=== PATIENT | female | born 1960 | race African-American/Black ===

== ENCOUNTER 2020-01-31 09:46 | Outpatient (CLI) | payer BC, SELFPAY ==
[2020-01-31 10:10] LABS: Hemoglobin A1C 8.2 % (<5.7)
== END 2020-01-31 09:47 | disposition home or self-care (01) ==
LOC: ANHLAB 09:48
PROVIDERS: PCP Internal Medicine; Visit Provider Nurse Practitioner
DX: E11.9 Type 2 diabetes mellitus without complications (principal)
CPT/HCPCS: 36415; 83036

== ENCOUNTER 2020-04-25 08:53 | Outpatient (CLI) | payer BC, SELFPAY ==
[2020-04-25 09:27] LABS: Basophils Percent Auto 0.5 % (0.2-1.2); Eosinophils Absolute Auto 0.1 K/mm3 (0-0.3); Eosinophils Percent Auto 1.9 % (0-4.4); Hematocrit 35.2 % (37.0-47.0); Hemoglobin 11.8 g/dL (12.0-15.0); Immature Granulocyte Absolute 0.02 K/mm3 (0.00-0.031); Immature Granulocyte Percent A 0.5 % (0-0.5); Lymphocytes Absolute Auto 1.36 K/mm3 (0.9-3.2); Lymphocytes Percent Auto 32.2 % (18.3-44.2); Mean Corpuscular HGB Conc 33.5 g/dl (32-36); Mean Corpuscular Hemoglobin 28.4 pg (26-34); Mean Corpuscular Volume 84.6 fl (80-100); Mean Platelet Volume 10.3 fl (7.4-10.4); Monocytes Absolute Auto 0.3 K/mm3 (0.1-0.6); Monocytes Percent Auto 6.9 % (2.6-8.5); Neutrophils Absolute Auto 2.5 K/mm3 (1.3-6.7); Platelet Count Result 246 k/mm3 (150-375); Red Blood Count 4.16 M/mm3 (4.2-5.4); Red Cell Distribution Width 13.6 % (11.5-14.5); White Blood Count 4.2 K/mm3 (4.5-10.0)
[2020-04-25 09:33] LABS: Alanine Aminotransferase 18 U/L (4-35); Albumin Level 4.1 g/dL (3.5-5.1); Alkaline Phosphatase 93 U/L (38-126); Anion Gap 8 mmol/L (8-16); Aspartate Amino Transferase 23 U/L (14-36); Bilirubin,Total 0.2 mg/dL (0.2-1.3); Blood Urea Nitrogen 9 mg/dL (7-17); Calcium 9.2 mg/dL (8.4-10.2); Carbon Dioxide 28 mmol/L (22-30); Chloride 103 mmol/L (98-107); Cholesterol 166 mg/dL (0-200); Estimated Glomerular Filt Rate > 60; Glucose 134 mg/dL (65-105); HDL Direct 45 mg/dL; Potassium 4.2 mmol/L (3.4-5.0); Sodium 139 mmol/L (137-145); Triglycerides 125 mg/dL (<150)
[2020-04-25 09:41] LABS: Hemoglobin A1C 7.9 % (<5.7)
[2020-04-25 09:44] LABS: LDL Cholesterol Direct 83 mg/dL
== END 2020-04-25 08:54 | disposition home or self-care (01) ==
PROVIDERS: PCP Internal Medicine; Visit Provider Nurse Practitioner
DX: E11.9 Type 2 diabetes mellitus without complications (principal)
CPT/HCPCS: 36415; 80053; 80061; 83036; 85025

== ENCOUNTER 2020-08-08 07:42 | Outpatient (CLI) | payer BC, SELFPAY ==
[2020-08-08 08:23] LABS: Basophils Percent Auto 0.5 % (0.2-1.2); Eosinophils Absolute Auto 0.1 K/mm3 (0-0.3); Eosinophils Percent Auto 1.7 % (0-4.4); Hematocrit 35.2 % (37.0-47.0); Hemoglobin 11.9 g/dL (12.0-15.0); Immature Granulocyte Absolute 0.01 K/mm3 (0.00-0.031); Immature Granulocyte Percent A 0.2 % (0-0.5); Lymphocytes Absolute Auto 1.37 K/mm3 (0.9-3.2); Lymphocytes Percent Auto 32.5 % (18.3-44.2); Mean Corpuscular HGB Conc 33.8 g/dl (32-36); Mean Corpuscular Hemoglobin 29.4 pg (26-34); Mean Corpuscular Volume 86.9 fl (80-100); Mean Platelet Volume 10.5 fl (7.4-10.4); Monocytes Absolute Auto 0.3 K/mm3 (0.1-0.6); Monocytes Percent Auto 7.3 % (2.6-8.5); Neutrophils Absolute Auto 2.4 K/mm3 (1.3-6.7); Neutrophils Percent Auto 57.8 % (45.5-73.1); Platelet Count Result 232 k/mm3 (150-375); Red Blood Count 4.05 M/mm3 (4.2-5.4); Red Cell Distribution Width 13.7 % (11.5-14.5); White Blood Count 4.2 K/mm3 (4.5-10.0)
[2020-08-08 08:31] LABS: Immature Reticulocyte Fraction 14.8 % (3.0-15.9); Reticulocyte Hemoglobin Conten 33.3 pg (28.2-35.7); Reticulocyte Percent 1.74 % (0.7-4.3); Reticulocytes Absolute 0.07 B/L (32.2-175.7)
[2020-08-08 08:37] LABS: Alanine Aminotransferase 24 U/L (4-35); Alkaline Phosphatase 85 U/L (38-126); Anion Gap 2 mmol/L (8-16); Aspartate Amino Transferase 26 U/L (14-36); Bilirubin,Total 0.2 mg/dL (0.2-1.3); Blood Urea Nitrogen 12 mg/dL (7-17); Calcium 9.1 mg/dL (8.4-10.2); Carbon Dioxide 29 mmol/L (22-30); Chloride 103 mmol/L (98-107); Cholesterol 155 mg/dL (0-200); Estimated Glomerular Filt Rate > 60; Glucose 206 mg/dL (65-105); HDL Direct 45 mg/dL; Potassium 4.2 mmol/L (3.4-5.0); Sodium 134 mmol/L (137-145); Triglycerides 140 mg/dL (<150)
[2020-08-08 08:48] LABS: LDL Cholesterol Direct 68 mg/dL
[2020-08-08 09:05] LABS: Iron 66 ug/dL (37-170)
[2020-08-08 09:08] LABS: Creatinine Urine 160.6 mg/dL
[2020-08-08 09:14] LABS: Percent Iron Saturation 18 % (20-50)
[2020-08-08 09:33] LABS: MALB Creatinine Ratio < 3.7 mg/g (0-30); Microalbumin Urine Random < 6.0 mg/L (0-16.7)
[2020-08-08 09:48] LABS: Hemoglobin A1C 8.1 % (<5.7)
== END 2020-08-08 07:43 | disposition home or self-care (01) ==
PROVIDERS: PCP Internal Medicine; Visit Provider Clinical Nurse Specialist
DX: E11.9 Type 2 diabetes mellitus without complications (principal); Z79.4 Long term (current) use of insulin; E78.00 Pure hypercholesterolemia, unspecified; D62 Acute posthemorrhagic anemia; K92.0 Hematemesis; K92.1 Melena
CPT/HCPCS: 36415; 80053; 80061; 82043; 82728; 83036; 83540; 83550; 85025; 85046

== ENCOUNTER 2020-08-13 14:28 | Outpatient (CLI) | payer BC, SELFPAY ==
--- NOTE | ~2020-08-13 | XR_ITS ---
XR wrist LT min 3V DATE: 08/13/2020 14:44 INDICATION: Left wrist pain, swelling. No known injury TECHNIQUE: 4 views COMPARISON: None FINDINGS: There is some circumscribed chronic bony density at the distal medial aspect of the ulna. No recent fracture or dislocation. No periosteal reaction or bone destruction. There is osteoarthritic change at the first carpometacarpal joint. 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 BIT ARTIST
== END 2020-08-13 14:29 | disposition home or self-care (01) ==
LOC: ANHIMG 14:34
PROVIDERS: PCP Internal Medicine; Visit Provider Clinical Nurse Specialist
DX: M25.532 Pain in left wrist (principal); M19.032 Primary osteoarthritis, left wrist
CPT/HCPCS: 73110

== ENCOUNTER 2020-08-14 15:48 | Outpatient (CLI) | payer BC, SELFPAY ==
--- NOTE | ~2020-08-14 | MM_ITS ---
EXAMINATION: MM screening getachew BI w jeet HISTORY: Screening mammogram, family history of breast cancer in her mother and sister. TECHNIQUE: Craniocaudal and mediolateral oblique 3-D tomosynthesis images were obtained and synthetic 2-D images were generated. CAD analysis was submitted and interpreted. COMPARISON: 07/25/2019, 05/16/2019, 08/21/2017 BREAST PARENCHYMAL COMPOSITION: The breasts are almost entirely fatty. FINDINGS: There is no evidence of suspicious mass, calcification, or architectural distortion to sugg est malignancy in either breast. There has been no suspicious interval change. IMPRESSION: 1. No mammographic evidence of malignancy. 2. Recommend routine screening mammography in one year. BI-RADS Category 1: Negative Reviewed, dictated and finalized at location A. . 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
== END 2020-08-14 15:49 | disposition home or self-care (01) ==
LOC: ANHIMG 15:50
PROVIDERS: PCP Internal Medicine; Visit Provider Internal Medicine
DX: Z12.31 Encounter for screening mammogram for malignant neoplasm of breast (principal)
CPT/HCPCS: 77063; 77067

== ENCOUNTER 2020-09-29 14:38 | Outpatient (CLI) | payer BC, SELFPAY ==
--- NOTE | ~2020-09-29 | MR_ITS ---
EXAMINATION: MR wrist LT wo/w con DATE: 09/29/2020 15:55 INDICATION: Left wrist ganglion presenting with pain TECHNIQUE: Magnetic resonance imaging (MRI) of the left wrist was performed without and with 20 mL Mu ltihance intravenous contrast. Sequences performed include axial T1-weighted FSE, axial, sagittal and coronal T1-weighted FSE, T2-weighted FS FSE and postcontrast T1-weighted FS FSE. COMPARISON: Left wrist radiographs dated 08/13/2020 FINDINGS: Intrinsic ligaments: The scapholunate and lunotriquetral ligaments are normal. Triangular fibrocartilage complex (TFCC): The distal aspect of the ulnar side of the triangular fibrocartilage complex appears to extend to a s mall ossicle overlying the distal tip of the ulnar styloid process which could represent either a chr onic nonunited avulsion fracture fragment or heterotopic ossification of the avulsed ulnar styloid at tachment of the trigone fibrocartilage complex. There is mild cystic change in the underlying ulnar s tyloid process. The triangular foreign cartilage complex appears otherwise normal with intact radial and foveal attachments and intact dorsal and radioulnar ligaments. The extensor carpi ulnaris tendon sheath is normal. Extensor wrist: Small amount of fluid consistent with mild tenosynovitis in the fourth dorsal compartment of the wris t with small amount of fluid signal surrounding the tendons. There is thickening of the extensor tend ons and the fourth dorsal compartment. One of the tendons which appears to extend towards the third d igit appears expanded by a 7 x 3 x 2 mm intrasubstance ganglion cyst suggesting a partial-thickness i ntrasubstance tear. This is located dorsal to the capitate. Remaining extensor tendons of the wrist a re normal. Flexor wrist: The flexor tendons of the wrist are normal. No abnormality in the carpal tunnel with normal median n erve. Guyon's canal: Guyon's canal including the ulnar nerve and artery are normal. Bones/other: Bone alignment is normal. No fracture or pathologic marrow replacing process. There is mild to modera te osteoarthritis at the first carpal metacarpal joint with nonuniform joint space narrowing, small m arginal osteophytes, small palmar side at this osteochondral body and mild subarticular edema at the base of the first metatarsal. Marrow signal is otherwise normal. No acute fracture or pathologic meeta ow replacing process. Additional mild osteoarthritis at the distal radioulnar, midcarpal and triscap he joints. IMPRESSION: 1. Tenosynovitis in the fourth dorsal compartment with tendinopathy of the extensor tendons most maira re involving the extensor tendons to the third digit one of which is likely partially torn with small intrasubstance ganglion cyst. 2. Portion of the targeted fibrocartilage complex extends to a small ossicle near the tip of the ulna r styloid process consistent with either a chronic nonunited avulsion fracture or heterotopic ossific ation related to chronic soft tissue avulsion injury. 3. Mild to moderate osteoarthritis at the first carpometacarpal joint. Reviewed, dictated and finalized at location A. IMPRESSION: 1. Tenosynovitis in the fourth dorsal compartment with tendinopathy of the exte nsor tendons most severe involving the extensor tendons to the third digit one of which is likely partially torn with small intrasubstance ganglion cyst. 2. Portion of the targeted fibrocartilage complex extends to a small ossicle ne ar the tip of the ulnar styloid process consistent with either a chronic nonuni echo avulsion fracture or heterotopic ossification related to chronic soft tissu e avulsion injury. 3. Mild to moderate osteoarthritis at the first carpometacarpal joint.
[2020-09-29 15:17] LABS: Estimated Glomerular Filt Rate > 60
== END 2020-09-29 14:39 | disposition home or self-care (01) ==
PROVIDERS: PCP Internal Medicine; Visit Provider Orthopaedic Surgery
DX: M67.432 Ganglion, left wrist (principal); M18.12 Unilateral primary osteoarthritis of first carpometacarpal joint, left hand
CPT/HCPCS: 73223; A9577

== ENCOUNTER 2020-11-07 07:36 | Outpatient (CLI) | payer BC, SELFPAY | END 2020-11-07 07:37 | disposition home or self-care (01) | LOC: ANHLAB 07:38 | PROVIDERS: PCP Internal Medicine; Visit Provider Clinical Nurse Specialist | DX: E11.9 Type 2 diabetes mellitus without complications (principal); Z79.4 Long term (current) use of insulin | CPT/HCPCS: 36415; 83036 ==

== ENCOUNTER 2021-02-17 13:19 | Outpatient (CLI) | payer BC, SELFPAY ==
[2021-02-17 15:44] LABS: Hematocrit 39.2 % (37.0-47.0); Hemoglobin 12.9 g/dL (12.0-15.0); Mean Corpuscular HGB Conc 32.9 g/dl (32-36); Mean Corpuscular Hemoglobin 28.8 pg (26-34); Mean Corpuscular Volume 87.5 fl (80-100); Mean Platelet Volume 10.9 fl (7.4-10.4); Platelet Count Result 295 k/mm3 (150-375); Red Blood Count 4.48 M/mm3 (4.2-5.4); Red Cell Distribution Width 13.9 % (11.5-14.5); White Blood Count 4.9 K/mm3 (4.5-10.0)
[2021-02-17 17:24] LABS: Iron 77 ug/dL (37-170)
[2021-02-17 17:33] LABS: Percent Iron Saturation 21 % (20-50)
== END 2021-02-17 13:20 | disposition home or self-care (01) ==
PROVIDERS: PCP Internal Medicine; Visit Provider Nurse Practitioner Family
DX: D62 Acute posthemorrhagic anemia (principal)
CPT/HCPCS: 36415; 82728; 83540; 83550; 85027

== ENCOUNTER 2021-08-31 14:47 | Outpatient (CLI) | payer BC, SELFPAY ==
--- NOTE | ~2021-08-31 | MM_ITS ---
EXAMINATION: MM screening getachew BI w jeet HISTORY: Screening mammogram TECHNIQUE: Craniocaudal and mediolateral oblique 3-D tomosynthesis images were obtained and synthetic 2-D images were generated. CAD analysis was submitted and interpreted. COMPARISON: No prior mammogram is available for comparison at this institution. BREAST PARENCHYMAL COMPOSITION: The breasts are almost entirely fatty. FINDINGS: Scattered benign calcifications are noted. There is no evidence of suspicious mass, calcifi cation, or architectural distortion to suggest malignancy in either breast. There has been no suspici ous interval change. IMPRESSION: 1. No mammographic evidence of malignancy. 2. Recommend routine screening mammography in one year. BI-RADS Category 2: Benign finding(s). Reviewed, dictated and finalized at location A. UCT DELIVERY SPECIALIST
== END 2021-08-31 14:48 | disposition home or self-care (01) ==
LOC: ANHIMG 14:50
PROVIDERS: PCP Internal Medicine; Visit Provider Internal Medicine
DX: Z12.31 Encounter for screening mammogram for malignant neoplasm of breast (principal)
CPT/HCPCS: 77063; 77067

== ENCOUNTER 2022-01-14 09:45 | Outpatient (CLI) | payer BC, SELFPAY ==
[2022-01-14 11:19] LABS: Alanine Aminotransferase 18 U/L (6-35); Alkaline Phosphatase 86 U/L (38-126); Anion Gap 5 mmol/L (8-16); Aspartate Amino Transferase 23 U/L (14-36); Bilirubin,Total < 0.1 mg/dL (0.2-1.3); Blood Urea Nitrogen 4 mg/dL (7-17); Calcium 8.2 mg/dL (8.4-10.2); Carbon Dioxide 28 mmol/L (22-30); Chloride 104 mmol/L (98-107); Cholesterol 160 mg/dL (0-200); Estimated Glomerular Filt Rate > 60; Glucose 155 mg/dL (65-110); HDL Direct 46 mg/dL; Potassium 3.7 mmol/L (3.4-5.0); Sodium 137 mmol/L (137-145); Triglycerides 131 mg/dL (<150)
[2022-01-14 11:37] LABS: LDL Cholesterol Direct 71 mg/dL
[2022-01-14 14:06] LABS: Microalbumin Urine Random 34.6 mg/L (0-16.7)
[2022-01-14 14:09] LABS: Creatinine Urine 279.8 mg/dL; MALB Creatinine Ratio 12.4 mg/g (0-30)
[2022-01-14 15:09] LABS: Free T4 Free Thyroxine 0.93 ng/mL (0.78-2.19); Vitamin D 25 Hydroxy 35.9 ng/mL
== END 2022-01-14 09:46 | disposition home or self-care (01) ==
LOC: ANHLAB 09:47
PROVIDERS: PCP Internal Medicine; Visit Provider Nurse Practitioner Family
DX: R79.89 Other specified abnormal findings of blood chemistry (principal); I10 Essential (primary) hypertension; E78.00 Pure hypercholesterolemia, unspecified; E11.9 Type 2 diabetes mellitus without complications
CPT/HCPCS: 36415; 80053; 80061; 82043; 82306; 82607; 84439; 84443

== ENCOUNTER 2022-02-14 07:09 | Outpatient (CLI) | payer BC, SELFPAY ==
[2022-02-14 09:02] LABS: Anion Gap 12 mmol/L (8-16); Blood Urea Nitrogen 7 mg/dL (7-17); Calcium 8.7 mg/dL (8.4-10.2); Carbon Dioxide 24 mmol/L (22-30); Chloride 102 mmol/L (98-107); Estimated Glomerular Filt Rate > 60; Glucose 149 mg/dL (65-110); Potassium 4.9 mmol/L (3.4-5.0); Sodium 138 mmol/L (137-145)
[2022-02-22 15:32] LABS: Parathyroid Hormone Related Pr 12 pg/mL (11-20)
== END 2022-02-14 07:10 | disposition home or self-care (01) ==
LOC: ANHLAB 07:10
PROVIDERS: PCP Internal Medicine; Visit Provider Nurse Practitioner Family
DX: E83.51 Hypocalcemia (principal); R79.89 Other specified abnormal findings of blood chemistry
CPT/HCPCS: 36415; 80048; 83519

== ENCOUNTER 2022-10-19 09:07 | Outpatient (CLI) | payer BC, SELFPAY ==
[2022-10-19 09:31] LABS: Basophils Percent Auto 0.5 % (0.2-1.2); Eosinophils Absolute Auto 0.1 K/mm3 (0-0.3); Eosinophils Percent Auto 1.7 % (0-4.4); Hematocrit 35.4 % (37.0-47.0); Hemoglobin 11.8 g/dL (12.0-15.0); Immature Granulocyte Absolute 0.01 K/mm3 (0.00-0.031); Immature Granulocyte Percent A 0.2 % (0-0.5); Lymphocytes Absolute Auto 1.44 K/mm3 (0.9-3.2); Lymphocytes Percent Auto 34.1 % (18.3-44.2); Mean Corpuscular HGB Conc 33.3 g/dl (32-36); Mean Corpuscular Hemoglobin 29.9 pg (26-34); Mean Corpuscular Volume 89.6 fl (80-100); Mean Platelet Volume 9.7 fl (7.4-10.4); Monocytes Absolute Auto 0.3 K/mm3 (0.1-0.6); Monocytes Percent Auto 7.1 % (2.6-8.5); Neutrophils Absolute Auto 2.4 K/mm3 (1.3-6.7); Neutrophils Percent Auto 56.4 % (45.5-73.1); Platelet Count Result 241 k/mm3 (150-375); Red Blood Count 3.95 M/mm3 (4.2-5.4); White Blood Count 4.2 K/mm3 (4.5-10.0)
[2022-10-19 09:42] LABS: Alanine Aminotransferase 22 U/L (6-35); Albumin Level 4.3 g/dL (3.5-5.1); Alkaline Phosphatase 89 U/L (38-126); Anion Gap 6 mmol/L (8-16); Aspartate Amino Transferase 24 U/L (14-36); Bilirubin,Total 0.5 mg/dL (0.2-1.3); Blood Urea Nitrogen 11 mg/dL (7-17); Calcium 8.8 mg/dL (8.4-10.2); Carbon Dioxide 25 mmol/L (22-30); Chloride 103 mmol/L (98-107); Cholesterol 162 mg/dL (0-200); Estimated Glomerular Filt Rate > 60; Glucose 129 mg/dL (65-110); HDL Direct 48 mg/dL; Potassium 3.8 mmol/L (3.4-5.0); Sodium 134 mmol/L (137-145); Triglycerides 119 mg/dL (<150)
[2022-10-19 09:52] LABS: Hemoglobin A1C 7.7 % (<5.7)
[2022-10-19 10:03] LABS: Vitamin D 25 Hydroxy 37.7 ng/mL
[2022-10-19 10:12] LABS: LDL Cholesterol Direct 73 mg/dL
== END 2022-10-19 09:08 | disposition home or self-care (01) ==
LOC: ANHLAB 09:09
PROVIDERS: PCP Internal Medicine; Visit Provider Nurse Practitioner
DX: R79.89 Other specified abnormal findings of blood chemistry (principal); E11.9 Type 2 diabetes mellitus without complications
CPT/HCPCS: 36415; 80053; 80061; 82306; 83036; 85025

== ENCOUNTER 2022-11-21 12:30 | Outpatient (CLI) | payer BC, SELFPAY ==
[2022-11-21 14:03] LABS: Free T4 Free Thyroxine 0.95 ng/mL (0.78-2.19)
== END 2022-11-21 12:31 | disposition home or self-care (01) ==
PROVIDERS: PCP Internal Medicine; Visit Provider Nurse Practitioner Family
DX: E11.9 Type 2 diabetes mellitus without complications (principal)
CPT/HCPCS: 36415; 84439; 84443

== ENCOUNTER 2022-12-16 13:02 | Outpatient (CLI) | payer BC, SELFPAY ==
--- NOTE | ~2022-12-16 | XR_ITS ---
Right Knee Technique: AP, lateral, and sunrise views were obtained. Clinical History: Pain Findings: No fracture or dislocation is seen. Osseous alignment is anatomic. Joint spaces are preserv ed without degenerative or erosive change. There is enthesopathic change at the Achilles tendon inser tion. There is probable heterotopic ossification related to remote MCL injury proximally.. No joint e ffusion is seen. Impression: No acute reality seen. Evidence of prior remote MCL injury. Enthesopathic change at the Achilles tendon insertion. Reviewed, dictated and finalized at location M. Impression: No acute reality seen. Evidence of prior remote MCL injury. Enthesopathic change at the Achilles tendon insertion.
[2022-12-16 13:32] LABS: Basophils Percent Auto 0.3 % (0.2-1.2); Eosinophils Absolute Auto 0.1 K/mm3 (0-0.3); Eosinophils Percent Auto 1.3 % (0-4.4); Hematocrit 35.8 % (37.0-47.0); Hemoglobin 11.9 g/dL (12.0-15.0); Immature Granulocyte Absolute 0.03 K/mm3 (0.00-0.031); Immature Granulocyte Percent A 0.3 % (0-0.5); Lymphocytes Absolute Auto 1.44 K/mm3 (0.9-3.2); Lymphocytes Percent Auto 15.2 % (18.3-44.2); Mean Corpuscular HGB Conc 33.2 g/dl (32-36); Mean Corpuscular Hemoglobin 29.6 pg (26-34); Mean Corpuscular Volume 89.1 fl (80-100); Mean Platelet Volume 10.7 fl (7.4-10.4); Monocytes Absolute Auto 0.4 K/mm3 (0.1-0.6); Monocytes Percent Auto 4.4 % (2.6-8.5); Neutrophils Absolute Auto 7.4 K/mm3 (1.3-6.7); Neutrophils Percent Auto 78.5 % (45.5-73.1); Platelet Count Result 265 k/mm3 (150-375); Red Blood Count 4.02 M/mm3 (4.2-5.4); Red Cell Distribution Width 13.9 % (11.5-14.5); White Blood Count 9.5 K/mm3 (4.5-10.0)
[2022-12-16 14:03] LABS: Iron 56 ug/dL (37-170)
[2022-12-16 14:13] LABS: Percent Iron Saturation 16 % (20-50)
[2022-12-16 14:51] LABS: Folic Acid 13.4 ng/mL (2.76->20)
== END 2022-12-16 13:03 | disposition home or self-care (01) ==
LOC: ANHIMG 13:02
PROVIDERS: Clinical Nurse Specialist; PCP Internal Medicine; Visit Provider Nurse Practitioner
DX: M25.561 Pain in right knee (principal); D64.9 Anemia, unspecified; R93.6 Abnormal findings on diagnostic imaging of limbs
CPT/HCPCS: 36415; 73564; 82607; 82728; 82746; 83540; 83550; 85025

== ENCOUNTER 2023-02-02 08:26 | Outpatient (CLI) | payer OTHER, SELFPAY ==
--- NOTE | ~2023-02-02 | MM_ITS ---
EXAMINATION: MM screening getachew BI w jeet HISTORY: Screening mammogram, family history of breast cancer in her mother. TECHNIQUE: Craniocaudal and mediolateral oblique 3-D tomosynthesis images were obtained and synthetic 2-D images were generated. CAD analysis was submitted and interpreted. COMPARISON: 08/31/2021, 08/14/2020, 07/25/2019 BREAST PARENCHYMAL COMPOSITION: The breasts are almost entirely fatty. FINDINGS: No suspicious mass, calcification, or architectural distortion are identified in either alonso ast to suggest malignancy. There has been no suspicious interval change. IMPRESSION: 1. No mammographic evidence of malignancy. 2. Recommend routine screening mammography in one year. BI-RADS Category 1: Negative Reviewed, dictated and finalized at location A.
--- NOTE | ~2023-02-02 | DEXA_ITS ---
Bone Density Report Name: JANEL DOMINGUEZ Age: 62 Sex: Female Ethnicity: White Date of : 1960 Indication: postmenopausal; screening for osteoporosis; Referring Provider: JACKY PINEDA Study: Bone densitometry was performed. Exam Date: February 02, 2023 Accession number: [id number] Bone Density: Region BMD T-score Z-score Classification AP Spine(L1-L4) 1.309 2.4 3.9 Normal Femoral Neck (Left) 0.989 1.3 2.6 Normal Total Hip (Left) 1.210 2.2 3.2 Normal Femoral Neck (Right) 1.029 1.6 3.0 Normal Total Hip (Right) 1.216 2.2 3.3 Normal Total Hip Mean 1.213 2.2 3.3 Normal World Health Organization criteria for BMD impression classify patients as: Normal (T-score at or above -1.0), Osteopenia (T-score between -1.0 and -2.5), or Osteoporosis (T-score at or below -2.5). 10-year Fracture Risk: FRAX not reported because: All T-scores for Spine Total, Hip Total, Femoral Neck at or above -1.0 Clinical Information Provided by Patient: Has used the following medications: Vitamin D Patient maximum height was 56 Menopause Age: 51 Drinks caffeinated beverages Onset of menses at age 13 Number of children 1 Impression: The patient has normal bone mass. Discussion: LOW RISK OF FRACTURE; BONE DENSITY IS WELL ABOVE THE MINIMUM DESIRABLE LEVEL AND ABOVE AVERAGE FOR AGE AND SEX AT ALL SKELETAL SITES TESTED. This person's bone density is above expected limits for age and sex. This is rarely clinically significant, but should be pursued if there are significant musculoskeletal complaints. The patient should follow a healthful lifestyle (good nutrition with adequate calcium and vitamin D, and appropriate weight-bearing exercise). Follow-Up: Consider repeating this study in 5 years or sooner if there is some new clinical indication. Reported by: [facility] on 02/02/2023 8:59:00 AM. Reviewed, dictated and finalized at location ANikolai POSADA
== END 2023-02-02 08:27 | disposition home or self-care (01) ==
PROVIDERS: PCP Internal Medicine; Visit Provider Clinical Nurse Specialist
DX: Z12.31 Encounter for screening mammogram for malignant neoplasm of breast (principal); Z78.0 Asymptomatic menopausal state
CPT/HCPCS: 77063; 77067; 77080

== ENCOUNTER 2023-02-13 16:32 | Outpatient (CLI) | payer OTHER, SELFPAY ==
--- NOTE | ~2023-02-13 | US_ITS ---
EXAMINATION: US thyroid DATE: 02/13/2023 18:23 INDICATION: Dysphasia. Family history of thyroid cancer. TECHNIQUE: Multiple ultrasound images of the thyroid were obtained. COMPARISON: None. FINDINGS: The right thyroid lobe measures 4.6 x 1.6 x 1.6 cm. The left thyroid lobe measures 4.8 x 1.6 x 1.7 c m. The isthmus measures 0.3 cm. There is slightly heterogeneous echotexture and echogenicity througho ut the thyroid gland. No discrete nodules identified. Normal vascular flow is present. IMPRESSION: Heterogeneous echogenicity of the thyroid gland, a nonspecific finding that can be seen with Hashimot o thyroiditis and Graves' disease. No nodules detected. Reviewed, dictated and finalized at location K. IMPRESSION: Heterogeneous echogenicity of the thyroid gland, a nonspecific finding that can be seen with [place] thyroiditis and Graves' disease. No nodules detected.
== END 2023-02-13 16:33 | disposition home or self-care (01) ==
PROVIDERS: PCP Internal Medicine; Visit Provider Nurse Practitioner Family
DX: R13.10 Dysphagia, unspecified (principal)
CPT/HCPCS: 76536

== ENCOUNTER 2024-03-16 07:19 | Outpatient (CLI) | payer OTHER, SELFPAY ==
[2024-03-16 08:05] LABS: Alanine Aminotransferase 21 U/L (6-35); Albumin Level 4.1 g/dL (3.5-5.1); Alkaline Phosphatase 76 U/L (38-126); Anion Gap 9 mmol/L (4-12); Aspartate Amino Transferase 28 U/L (14-36); Bilirubin,Total 0.3 mg/dL (0.2-1.3); Blood Urea Nitrogen 7 mg/dL (7-17); Carbon Dioxide 29 mmol/L (22-30); Chloride 100 mmol/L (98-107); Cholesterol 147 mg/dL (0-200); Estimated Glomerular Filt Rate > 60; Glucose 122 mg/dL (65-110); HDL Direct 52 mg/dL; Potassium 3.9 mmol/L (3.4-5.0); Sodium 138 mmol/L (137-145); Triglycerides 118 mg/dL (<150)
[2024-03-16 08:17] LABS: LDL Cholesterol Direct 59 mg/dL
[2024-03-16 09:11] LABS: Creatinine Urine 80.7 mg/dL
[2024-03-16 09:26] LABS: Free T4 Free Thyroxine 0.68 ng/mL (0.78-2.19); Vitamin D 25 Hydroxy 30.4 ng/mL
[2024-03-16 09:35] LABS: MALB Creatinine Ratio < 7.4 mg/g (0-30); Microalbumin Urine Random < 6.0 mg/L (0-16.7)
== END 2024-03-16 07:20 | disposition home or self-care (01) ==
LOC: ANHLAB 07:20
PROVIDERS: PCP Internal Medicine; Visit Provider Nurse Practitioner Family
DX: R79.89 Other specified abnormal findings of blood chemistry (principal); E83.51 Hypocalcemia; I10 Essential (primary) hypertension; E11.9 Type 2 diabetes mellitus without complications
CPT/HCPCS: 36415; 80053; 80061; 82043; 82306; 82607; 84439; 84443

== ENCOUNTER 2024-03-21 17:02 | Outpatient (CLI) | payer OTHER, SELFPAY ==
--- NOTE | ~2024-03-21 | US_ITS ---
EXAMINATION: US carotid duplex BI DATE: 03/21/2024 17:45 INDICATION: Carotid bruit TECHNIQUE: Grayscale, color Doppler, and pulsed Doppler images of the cervical carotid arteries were obtained. The degree of vessel stenosis is placed in one of the following categories: normal, <50%, 5 0-69%, >=70% but less than near-occlusion, near-occlusion, or total occlusion. Note that percent sten osis relative to normal distal artery lumen diameter is indirectly measured from velocity measurement s as described by Juan, et al. Radiology 2003; [id number]:340-346. COMPARISON: None. FINDINGS: RIGHT: The right common carotid artery (CCA) peak systolic velocity (PSV) is 100 cm/s. The right internal ca rotid artery (ICA) PSV is 104 cm/s. The right ICA end-diastolic velocity (EDV) is 39 cm/s. The right ICA/CCA PSV ratio is 1.0. Grayscale and color Doppler images yield an estimate of <50% diameter reduc tion from plaque in the ICA. The external carotid artery (ECA) PSV is 78 cm/s. There is antegrade david w in the right vertebral artery. LEFT: The left CCA PSV is 100 cm/s. The left ICA PSV is 111 cm/s. The left ICA EDV is 42 cm/s. The left ICA /CCA PSV ratio is 1.1. Grayscale and color Doppler images yield an estimate of <50% diameter reductio n from plaque in the ICA. The ECA PSV is 74 cm/s. There is antegrade flow in the left vertebral arter y. IMPRESSION: 1. <50% stenosis in the right internal carotid artery. 2. <50% stenosis in the left internal carotid artery. Reviewed, dictated and finalized at location B.
== END 2024-03-21 17:03 | disposition home or self-care (01) ==
PROVIDERS: PCP Internal Medicine; Visit Provider Nurse Practitioner
DX: I65.23 Occlusion and stenosis of bilateral carotid arteries (principal); R09.89 Other specified symptoms and signs involving the circulatory and respiratory systems
CPT/HCPCS: 93880

== ENCOUNTER 2024-04-22 08:48 | Outpatient (CLI) | payer OTHER, SELFPAY ==
[2024-04-22 09:21] LABS: Basophils Percent Auto 0.2 % (0.2-1.2); Eosinophils Absolute Auto 0.1 K/mm3 (0-0.3); Eosinophils Percent Auto 1.4 % (0-4.4); Hematocrit 35.7 % (37.0-47.0); Hemoglobin 11.7 g/dL (12.0-15.0); Immature Granulocyte Absolute 0.03 K/mm3 (0.00-0.031); Immature Granulocyte Percent A 0.7 % (0-0.5); Lymphocytes Absolute Auto 1.63 K/mm3 (0.9-3.2); Lymphocytes Percent Auto 38.7 % (18.3-44.2); Mean Corpuscular HGB Conc 32.8 g/dl (32-36); Mean Corpuscular Hemoglobin 29.5 pg (26-34); Mean Corpuscular Volume 90.2 fl (80-100); Mean Platelet Volume 10.8 fl (7.4-10.4); Monocytes Absolute Auto 0.4 K/mm3 (0.1-0.6); Monocytes Percent Auto 8.8 % (2.6-8.5); Neutrophils Absolute Auto 2.1 K/mm3 (1.3-6.7); Neutrophils Percent Auto 50.2 % (45.5-73.1); Platelet Count Result 239 k/mm3 (150-375); Red Blood Count 3.96 M/mm3 (4.2-5.4); Red Cell Distribution Width 13.7 % (11.5-14.5); White Blood Count 4.2 K/mm3 (4.5-10.0)
[2024-04-22 09:31] LABS: Alanine Aminotransferase 17 U/L (6-35); Albumin Level 4.1 g/dL (3.5-5.1); Alkaline Phosphatase 82 U/L (38-126); Anion Gap 8 mmol/L (4-12); Aspartate Amino Transferase 24 U/L (14-36); Bilirubin,Total 0.3 mg/dL (0.2-1.3); Blood Urea Nitrogen 16 mg/dL (7-17); Calcium 9.1 mg/dL (8.4-10.2); Carbon Dioxide 27 mmol/L (22-30); Chloride 101 mmol/L (98-107); Cholesterol 161 mg/dL (0-200); Estimated Glomerular Filt Rate > 60; Glucose 131 mg/dL (65-110); HDL Direct 50 mg/dL; Potassium 3.8 mmol/L (3.4-5.0); Sodium 136 mmol/L (137-145); Triglycerides 106 mg/dL (<150)
[2024-04-22 09:41] LABS: LDL Cholesterol Direct 68 mg/dL
[2024-04-22 09:50] LABS: Vitamin D 25 Hydroxy 39.1 ng/mL
== END 2024-04-22 08:49 | disposition home or self-care (01) ==
LOC: ANHLAB 08:49
PROVIDERS: PCP Internal Medicine; Visit Provider Nurse Practitioner
DX: R79.89 Other specified abnormal findings of blood chemistry (principal); E11.9 Type 2 diabetes mellitus without complications; D64.9 Anemia, unspecified
CPT/HCPCS: 36415; 80053; 80061; 82306; 82728; 85025

== ENCOUNTER 2024-05-20 15:05 | Outpatient (CLI) | payer OTHER, SELFPAY ==
--- NOTE | ~2024-05-20 | MM_ITS ---
EXAMINATION: MM screening getachew BI w jeet HISTORY: Screening mammogram, family history of breast cancer in her mother and sister. TECHNIQUE: Craniocaudal and mediolateral oblique 3-D tomosynthesis images were obtained and synthetic 2-D images were generated. CAD analysis was submitted and interpreted. COMPARISON: 02/02/2023, 08/31/2021, 08/14/2020 BREAST PARENCHYMAL COMPOSITION:Not Dense. The breasts are almost entirely fatty FINDINGS: No suspicious mass, calcification, or architectural distortion are identified in either alonso ast to suggest malignancy. There has been no suspicious interval change. IMPRESSION: No mammographic evidence of malignancy. Recommend routine screening mammography in one year. BI-RADS Category 1: Negative Reviewed, dictated and finalized at location . CTION CONTROL PREVENTIONIST
== END 2024-05-20 15:06 | disposition home or self-care (01) ==
LOC: ANHIMG 15:06
PROVIDERS: PCP Internal Medicine; Visit Provider Nurse Practitioner Obstetrics & Gynecology
DX: Z12.31 Encounter for screening mammogram for malignant neoplasm of breast (principal)
CPT/HCPCS: 77063; 77067

== ENCOUNTER 2024-06-13 09:42 | Outpatient (CLI) | payer OTHER, SELFPAY ==
--- NOTE | 2024-07-30 14:06 | WPDHOMESLEEP ---
Sleep Study - Home Unattended Date of Study: 06/13/24 Ordering Provider: Marisol Albarado NP Interpreting Provider: Stacie Machado DO [facility] Sleep Study Type: Watch PAT Height: 1.65 m Weight: 114.759 kg Body Mass Index: 42.0 Neck Circumference (inches): 15 Reason for Sleep Study snoring, difficulty falling asleep Sleep History The patient is a 64-year-old female that had a sleep study ordered by her primary care for evaluation of sleep apnea. The patient admits to snoring loudly, interruptions in breathing while asleep and difficulty falling asleep. The patient denies choking or gasping at night. She denies having trouble breathing on her back. She denies morning headaches. She does have a dry or sore mouth/ throat in the morning. She denies nocturnal heartburn. She does urinate twice per night. She denies having difficulty returning to sleep if she wakes up throughout the night. She denies having difficulty staying asleep. She denies any hypnotic or sedative use. He denies feeling anxious about sleep. She denies feeling tired or sleepy during the day. She denies feeling tired in the morning. She denies having the urge to fall asleep during the day. She denies feeling drowsy while driving. She denies sleep paralysis, cataplexy and hypnagogic / hypnopompic hallucinations. She does clench or grind her teeth. She denies kicking or jerking her legs excessively. She denies having a rough with feeling in her legs. She goes to bed at 10:00 p.m. on work days and at 11:00 p.m. on her days off. It takes her 15 minutes to fall asleep. She gets 7 hours of sleep on her work days and 8 hours of sleep on her days off. Her sleep is much more restorative on her days off. She denies taking any planned naps. She denies dream enactment behavior. She denies sleep walking. She denies consuming any caffeinated beverages throughout the day. She denies tobacco and alcohol use. She denies exercising on a regular basis. [facility] Past Medical History Medical History Body mass index (BMI) 35 or more (01/17/18) Abnormal mammogram of left breast Type 2 diabetes mellitus Hypertension High cholesterol Left wrist tendinitis Ganglion, left wrist Abnormal mammogram Environmental allergies Measles Varicella Surgical History Surgical History History of myomectomy [place] teeth removed History of carpal tunnel release Right History of section Family History Family History Sibling Diabetes mellitus Mother Hypertension Breast cancer Father Family history of lung cancer Other Arthritis Heart disease High cholesterol Lung cancer Thyroid disease Social History Social History Smoking status: Never smoker Alcohol intake: never Substance use: never Do You Feel Safe in your Home?: Yes Lack of Transportation: No Lack of Food: Never True Current Housing: I Have Housing Concerned About Future Housing: No Difficulty Paying Gas/Electric Bills: No Difficulty Paying for Meds: No Currently Unemployed: No Education: Master's Degree or Higher Difficulty w/ Childcare or Family Care: No Living arrangements: with family Occupation/Education: occupation Gender identity (if verbalized by the patient): Female Sexual Orientation (if Verbalized by the Patient): Straight or Heterosexual Spiritual care concerns: No Medications Home Medications ?Medication ?Instructions ?Recorded ?Confirmed ?Type cholecalciferol (vitamin D3) 25 1,000 unit PO DAILY 07/05/19 04/22/24 History mcg (1,000 unit) capsule blood-glucose meter (Xenomeuch #1 ea 03/01/23 04/22/24 Rx Ultra2 Meter) lancets 33 gauge (Qinging Weekly Flower Delivery Delica #400 ea 03/01/23 04/22/24 Rx Plus Lancet) fluticasone propionate 50 1 - 2 spray intranasal DAILY PRN 05/30/23 04/22/24 Rx mcg/actuation nasal nasal congestion #15.8 mL spray,suspension (Flonase Allergy Relief) lancing device with lancets kit #400 ea 07/26/23 04/22/24 Rx (Xenomeuch Delica Plus Lancing Device kit) atorvastatin 20 mg tablet 20 mg PO DAILY #90 tabs 07/28/23 04/22/24 Rx metformin 1,000 mg tablet 1,000 mg PO BID #180 tabs 08/22/23 04/22/24 Rx dapagliflozin propanediol 5 mg 5 mg PO DAILY #90 tabs 04/22/24 04/22/24 Rx tablet (Farxiga) amlodipine 5 mg tablet See Rx Instructions .Route 05/10/24 Rx .COMPLEX #90 tabs semaglutide 2 mg/dose (8 mg/3 mL) See Rx Instructions .Route 05/20/24 Rx subcutaneous pen injector (Ozempic) .COMPLEX #9 mL lisinopril 20 mg tablet 20 mg PO DAILY #90 tabs 05/21/24 Rx blood sugar diagnostic (OneTouch #400 ea 05/23/24 Rx Ultra Test strips) pen needle, diabetic 31 gauge x #100 ea 06/18/24 Rx / (BD Ultra-Fine Mini Pen Needle) insulin glargine 100 unit/mL (3 20 unit (0.2 mL) subcut QAM #18 mL 06/27/24 Rx mL) subcutaneous pen (Lantus Solostar U-100 Insulin) Sleep Procedure The sleep study was completed using [email or web address] a technically adequate device with seven channels: peripheral arterial tone, actigraphy, body position, snore, respiratory movement, pulse oximetry, sleep staging, and heart rate. Prior to using the device, the patient received verbal and written instructions for its application and was provided with the help desk phone number for additional telephonic instruction with 24-hour availability of qualified personnel to answer questions. The study was scored using AASM guidelines. Sleep Architecture The total recording time is 7 hrs, 50 min. The total sleep time is 7 hrs, 16 min. Sleep latency is 6 minutes. REM latency is 76 minutes. The patient had 8 episodes of waking. Sleep architecture shows 28.6% deep sleep, 42.6% light sleep, and (as % Total Sleep Time) showed NREM (Light 42.6%; Deep 28.6%), and a 28.8% stage REM. The patient spent 11.5% of total sleep time in the supine position. Sleep efficiency was 92.77. Respiratory Analysis The overall AHI (pAHI 3%:) is 7.2. The central AHI is 0.1. The AHI was 2.5 in NREM and 19.3 in REM sleep. The AHI was 11.1 in Supine and 6.8 in Non-supine sleep. Percent of Chris Evans respirations is 0.0. Oximetry Data The oxygen desaturation index (ED 4%:) is 2.5. The mean saturation is 94%, and the lowest saturation is 90%. Time spent with saturation < 88% is 0.0 minutes. Snoring Profile Snoring average intensity is 42 dB. The patient snored above 45 decibels for 46.8 minutes, 10.7% of sleep time. Cardiac Profile The average pulse rate is 82 beats per minutes. The lowest pulse rate is 54 bpm. The highest pulse rate reported is 110 bpm. Atrial fibrillation was not detected. Premature beats occur <0.1 per minute. Assessment and Plan Assessment and Plan (1) GUME (obstructive sleep apnea): Code(s): G47.33 - Obstructive sleep apnea (adult) (pediatric) Status: Acute Assessment and Plan: The patient had an overall AHI of 7.2 with desaturation down to 90%. This is consistent with mild sleep apnea. Due to the patient's hypertension and diabetes, she qualifies for treatment. I recommend that the patient be prescribed AutoPAP 5-15 cm H2O, CPAP mask/filters/tubing and heated humidity. This should be used with all episodes of sleep.? Compliance should be reviewed within 31-90 days of starting therapy for usage greater than 4 hours per night greater than 70% of the nights. The patient should be asked about symptoms such as?excessive daytime sleepiness, quality of sleep, decreased nocturia, increased?mental functioning such as memory, mood, and concentration. Data The data obtained during this sleep study is adequate for interpretation. Certification This sleep study has been reviewed by a board certified sleep medicine physician.
[2024-07-30 17:19] VITALS: BMI 42.0
== END 2024-07-23 09:29 | disposition home or self-care (01) ==
LOC: ANHCSM 09:45
PROVIDERS: PCP Internal Medicine; Visit Provider Nurse Practitioner
DX: G47.9 Sleep disorder, unspecified (principal); G47.33 Obstructive sleep apnea (adult) (pediatric)
CPT/HCPCS: 95800

== ENCOUNTER 2024-08-26 09:18 | Outpatient (CLI) | payer OTHER, SELFPAY ==
[2024-08-26 11:09] LABS: Free T4 Free Thyroxine 0.87 ng/dL (0.78-2.19)
[2024-08-26 11:10] LABS: Free T3 3.35 pg/mL (2.45-5.93)
--- OUTSIDE RECORDS SUMMARY | 2024-08-26 12:01 | XMS_ITS | Clinical Summary ---
Author Organization [facility] Address [address] [place] [address] Care Team Providers Care Embedded Engineer Name Role Phone EthanEsequiel valle DO Primary Care Provider [phone] Allergies No known active allergies Medications atorvastatin 20 MG tablet Take 20 mg by mouth daily. 07/06/2019 Active LEVEMIR FLEXTOUCH 100 UNIT/ML flextouch PEN Inject 28 Units into the skin nightly. 08/21/2019 Active VICTOZA 18 MG/3ML injection Inject 1.8 mLs into the skin daily. Active metFORMIN 1000 MG tablet Take 1,000 mg by mouth 2 (two) times daily. Active lisinopril 20 MG tablet Take 20 mg by mouth daily. Active fluticasone propionate 50 MCG/ACT nasal spray 1-2 sprays by Nasal route daily as needed. Active Active Problems Problem Noted Date Diagnosed Date GI bleeding 08/25/2019 Social History Tobacco Use Types Packs/Day Years Used Date Smoking Tobacco: Never Smokeless Tobacco: Never Alcohol Use Standard Drinks/Week Comments Not Currently 0 (1 standard drink = 0.6 oz pur e alcohol) Comments No Sex and Gender Information Value Date Recorded Sex Assigned at Not on file Legal Sex Female 5:07 PM CDT Gender Identity Not on file Sexual Orientation Not on file Last Filed Vital Signs Vital Sign Reading Time Taken Comments Blood Pressure 157/86 08/28/2019 4:00 PM SEED CLEANER OPERATOR Pulse 81 08/28/2019 3:54 PM SEED CLEANER OPERATOR Temperature 36.7 C (98 F) 08/28/2019 1:38 PM SEED CLEANER OPERATOR Respiratory Rate 17 08/28/2019 3:54 PM SEED CLEANER OPERATOR Oxygen Saturation 100% 08/28/2019 3:54 PM SEED CLEANER OPERATOR Inhaled Oxygen Concentration - - Weight 117 kg (257 lb 15 oz) 08/28/2019 1:38 PM SEED CLEANER OPERATOR Height 167.6 cm (5' 6 ) 08/28/2019 1:38 PM SEED CLEANER OPERATOR Body Mass Index 41.63 08/28/2019 1:38 PM SEED CLEANER OPERATOR Plan of Treatment Health Maintenance Due Date Last Done Comments Cervical Cancer Screening Pa p Smear (Age 30 to 64) Every 3 Years 1961 Annual Physical 1964 Hepatitis C 1979 DTaP, Tdap and Td Vaccines ( 1 - Tdap) 1980 Cervical Cancer Screening Pa p with HPV Testing (Age 30 to 64) Every 5 Years 1991 Cervical Cancer Screening wi th HPV 1991 Mammogram Screening 2001 Zoster Vaccines (1 of 2) 2011 COVID-19 Vaccine (2023-2 5 season) 2024 Influenza Adult (#1) 2024 Colorectal Cancer Screening Colonoscopy (10 Years) 08/26/2029 08/26/2019, 08/26/2019 RSV Immunization or 60+ Years (1 - 1-dose 75+ series) 2036 Meningococcal B Vaccine Aged Out No l onger eligible based on patient's age to complete this topic Meningococcal Vaccine Aged Out No nallely rodriguez eligible based on patient's age to complete this topic Pneumococcal Vaccine: Pediatrics (0 to 5 Years) and At-Risk Patients (6 to 64 Years) Aged Out No longer eligible b ased on patient's age to complete this topic RSV Immunizations Under 20 Months Aged Out No longer eligible b ased on patient's age to complete this topic Procedures Procedure Name Priority Date/Time Associated Diagnosis Comments COLONOSCOPY Routine 08/26/2019 1:21 PM SEED CLEANER OPERATOR from Last 3 Months or Most Recently Relevant to Health Maintenance Results * Colonoscopy (08/26/2019 1:21 PM SEED CLEANER OPERATOR) Narrative Ellis Steward MD - 08/26/2019 1:21 PM SEED CLEANER OPERATOR Ellis Steward MD 08/26/2019 2:05 PM ELLIS STEWARD MD, FACG, FACP COLONOSCOPY and EGD EGD INDICATION: Acute blood loss anemia with melena, heme positive stool and abnormal imaging digestive with possible colitis of the left colon who is on Aspirin and NSAIDs POST-OP: Normal. SEDATION: Per Anesthesia With the patient in the left lateral decubitus position, the Olympus [id number] endoscope was used to easily intubate the esophagus and advanced to the third duodenum. Careful inspection of the mucosa was made upon insertion and withdrawal of the endoscope with retroflexion in the stomach. Findings: Esophagus: SC Jx @ 40 cm. The esophagus is normal. No esophagitis, stricture, mass or Bermudez s . Stomach: Fundus, body and antrum normal. No ulceration, erosion, inflammation, AVM or malignancy. Duodenum: normal in the bulb, second and third duodenum. COLONOSCOPY INDICATION: Acute blood loss anemia with melena, heme positive stool and abnormal imaging digestive with possible colitis of the left colon who is on Aspirin and NSAIDs. POST-OP: Mild diverticulosis. PREP: Good. With the patient in the left lateral decubitus position, the Olympus [id number] colonoscope was introduced into the rectum and advanced easily to the Terminal Ileum. Careful inspection of the mucosa was made upon insertion and withdrawal of the endoscope. FINDINGS: Terminal ileum: distal 5 cm normal. Cecum, ascending colon, transverse colon and rectum including retroflexion normal. Descending colon, sigmoid colon: mold diverticulosis. No stigmata of bleed or active bleeding. No masses, polyps, AVMs, colitis seen. No complications, blood loss or implants ASSESSMENT AND PLAN: A. Acute blood loss anemia with melena, heme positive stool and abnormal imaging digestive with possible colitis of the left colon who is on Aspirin and NSAIDs: - Likely diverticular source - No active bleed - Follow H+H; transfuse prn - No aspirin , NSAIDS or anticoagulants x two weeks - Increase diet B. Mild diverticulosis: observe. C. Unremarkable colonoscopy: screening colonoscopy in ten years. Ellis Steward M.D. [phone] Ellis Steward MD GI PROCEDURE ORDERABLES Fin al Result from Last 3 Months or Most Recently Relevant to Health Maintenance Insurance [facility] Advance Directives * Full Code (Latest Code Status on File) Date Activated Date Inactivated Comments 08/25/2019 1:58 PM 08/27/2019 4:38 PM Care Teams Embedded Engineer Relationship Specialty Start Date End Date Esequiel Graff DO [address] [place] [address] PCP - General INTERNAL MEDICINE 08/25/19
--- OUTSIDE RECORDS SUMMARY | 2024-08-26 12:01 | XMS_ITS | Encounter Summary ---
Author Organization [facility] Address [address] [place] [address] Care Team Providers Care Plastic Surgery Manager Name Role Phone EthanEsequiel valle DO Primary Care Provider [phone] Encounter Details Date Type Department Care Team (Late st Contact Info) Description 08/28/2019 Hospital Follow-up Call [facility] Telemetry Unit A [address] [facility] [place] [address] Estelle Gr, Ski Lift Attendant Social History Tobacco Use Types Packs/Day Years Used Date Smoking Tobacco: Never Smokeless Tobacco: Never Alcohol Use Standard Drinks/Week Comments Not Currently 0 (1 standard drink = 0.6 oz pur e alcohol) Comments No Sex and Gender Information Value Date Recorded Sex Assigned at Not on file Legal Sex Female 5:07 PM CDT Gender Identity Not on file Sexual Orientation Not on file documented as of this encounter Functional Status * RETIRED Are you deaf or do you have serious difficulty hearing Answer Date of Assessment Author Status No 08/25/2019 2:00 PM LACE STRIPPER Activ e * RETIRED Are you blind or do you have serious difficulty seeing, even when wearing glasses? Answer Date of Assessment Author Status No 08/25/2019 2:00 PM LACE STRIPPER Activ e * Do you have serious difficulty walking or climbing stairs? Answer Date of Assessment Author Status No 08/25/2019 2:00 PM Mali Lowry RN Active * Do you have difficulty dressing or bathing? Answer Date of Assessment Author Status No 08/25/2019 2:00 PM Mali Lowry RN Active * Because of a physical, mental, or emotional condition, do you have difficulty doing errands alone such as visiting a doctor's office or shopping? Answer Date of Assessment Author Status No 08/25/2019 2:00 PM Mali Lowry RN Active documented as of this encounter Mental Status * Because of a physical, mental, or emotional condition, do you have serious difficulty concentrating, remembering, or making decisions? Answer Entry Date Author Status No 08/25/2019 2:00 PM Mali Lowry RN Active documented in this encounter Plan of Treatment Not on file documented as of this encounter Visit Diagnoses Not on filedocumented in this encounter Care Teams Plastic Surgery Manager Relationship Specialty Start Date End Date Esequiel Graff DO [address] [facility] [address] [place] [address] PCP - General INTERNAL MEDICINE 08/25/19 documented as of this encounter
== END 2024-08-26 09:19 | disposition home or self-care (01) ==
LOC: ANHLAB 09:19
PROVIDERS: PCP Nurse Practitioner Family; Visit Provider Nurse Practitioner Family
DX: R94.6 Abnormal results of thyroid function studies (principal)
CPT/HCPCS: 36415; 84439; 84443; 84481

== ENCOUNTER 2025-02-10 10:05 | Outpatient (CLI) | payer BC, SELFPAY ==
--- OUTSIDE RECORDS SUMMARY | 2025-02-10 10:26 | XMS_ITS | Clinical Summary ---
Author Organization [facility] Address [address] [place] [id number] Care Team Providers Care Sql Database Developer Name Role Phone Unavailable Primary Care Provider Unavailabl e Social History Tobacco Use Types Packs/Day Years Used Date Smoking Tobacco: Never Assessed Comments Unknown Sex and Gender Information Value Date Recorded Sex Assigned at Not on file Legal Sex Female 8:17 AM NAPPER FIXER Gender Identity Not on file Sexual Orientation Not on file Plan of Treatment Health Maintenance Due Date Last Done Comments Hepatitis C Virus (HCV) Screening 1961 TdaP Immunization 1961 Pap Smear 1982 Cervical Cancer Screening (CCS) 1991 HPV/Cotest 1991 Hepatitis B Immunization (2 of 3 - 19+ 3-dose series) 08/07/1998 07/10/1998 Cologuard 2006 Colonoscopy 2006 Colorectal Cancer Screening 2006 Immunochemical Fecal Occult Blood 2006 Zoster Immunization (1 of 2) 2011 Pneumococcal Immunization (5 0+ years) (3 of 3 - PCV20 or PCV21) 10/22/2019 10/21/2014, 07/10/2012 SARS-COV-2 Immunization (3 - season) 2024 09/11/2020, 08/14/2020 Influenza Immunization (#1) 2025 Respiratory Syncytial Virus (RSV) Immunization (Adult) (1 - 1-dose 75+ series) 2036 DTaP/Tdap/Td Immunization Discontinued 10/21/2014 Pneumococcal Immunization Combined Discontinued 10/21/2014, 07/10/2012 Human Papillomavirus (HPV) Immunization Aged Out No longer eligible based on patient's age to complete this topic Meningococcal Immunization (ACWY) Aged Out No longer eligible based on patient's age to complete this topic Rotavirus Immunization Aged Out No lo nger eligible based on patient's age to complete this topic
--- OUTSIDE RECORDS SUMMARY | 2025-02-10 10:26 | XMS_ITS | Clinical Summary ---
Author Organization [facility] Address [address] [place] [address] Care Team Providers Care Tourist Home Keeper Name Role Phone EthanEsequiel valle DO Primary Care Provider [phone] Allergies No known active allergies Medications atorvastatin [...] Comments Blood Pressure 157/86 08/28/2019 4:00 PM CIRCULAR SAWYER HELPER Pulse 81 08/28/2019 3:54 PM CIRCULAR SAWYER HELPER Temperature 36.7 C (98 F) 08/28/2019 1:38 PM CIRCULAR SAWYER HELPER Respiratory Rate 17 08/28/2019 3:54 PM CIRCULAR SAWYER HELPER Oxygen Saturation 100% 08/28/2019 3:54 PM CIRCULAR SAWYER HELPER Inhaled Oxygen Concentration - - Weight 117 kg (257 lb 15 oz) 08/28/2019 1:38 PM CIRCULAR SAWYER HELPER Height 167.6 cm (5' 6) 08/28/2019 1:38 PM CIRCULAR SAWYER HELPER Body Mass Index 41.63 08/28/2019 1:38 PM CIRCULAR SAWYER HELPER Plan of Treatment Health Maintenance Due Date [...] wi th HPV 1991 Mammogram Screening 2001 Pneumococcal Vaccine: 50+ Years (1 of 1 - PCV) 2011 Zoster Vaccines (1 of 2) 2011 COVID-19 Vaccine ( - 2023-2 5 season) 2024 Colorectal Cancer Screening Colonoscopy (10 Years) [...] Diagnosis Comments COLONOSCOPY Routine 08/26/2019 1:21 PM CIRCULAR SAWYER HELPER from Last 3 Months or Most Recently Relevant to Health Maintenance Results * Colonoscopy (08/26/2019 1:21 PM CIRCULAR SAWYER HELPER) Narrative Ellis Steward MD - 08/26/2019 1:21 PM CIRCULAR SAWYER HELPER Ellis Steward MD 08/26/2019 2:05 PM ELLIS STEWARD MD, FACG, FACP COLONOSCOPY and EGD EGD INDICATION: Acute blood loss anemia with melena, heme positive stool and abnormal imaging digestive with possible colitis of the left colon who is on Aspirin and NSAIDs POST-OP: Normal. SEDATION: Per Anesthesia With the patient in the left lateral decubitus position, the Olympus [id number] endoscope was used to easily intubate the [...] the left lateral decubitus position, the Olympus [id number] colonoscope was introduced into the rectum and [...] colonoscopy in ten years. Ellis Steward M.D. [phone] Ellis Steward MD GI PROCEDURE ORDERABLES Fin al Result from Last 3 Months or Most Recently Relevant to Health Maintenance Insurance [facility] Advance Directives * Full Code (Latest Code Status on File) Date Activated Date Inactivated Comments 08/25/2019 1:58 PM 08/27/2019 4:38 PM Care Teams Tourist Home Keeper Relationship Specialty Start Date End Date Esequiel Graff DO [address] [facility] [address] [place] [address] PCP - General INTERNAL MEDICINE 08/25/19
--- OUTSIDE RECORDS SUMMARY | 2025-02-10 10:26 | XMS_ITS | Encounter Summary ---
Author Organization [facility] Address [address] [place] [address] Care Team Providers Care Linoleum Mechanic Name Role Phone EthanEsequiel valle DO Primary Care Provider [phone] Encounter Details Date Type Department Care Team (Late st Contact Info) Description 08/28/2019 Hospital Follow-up Call [facility] Telemetry Unit A [address] [place] [address] Estelle Gr, It Specialist Social History Tobacco Use Types Packs/Day Years [...] Assessment Author Status No 08/25/2019 2:00 PM NOTEREADER Activ e * RETIRED Are you blind or do you have serious difficulty seeing, even when wearing glasses? Answer Date of Assessment Author Status No 08/25/2019 2:00 PM NOTEREADER Activ e * Do you have serious [...] on filedocumented in this encounter Care Teams Linoleum Mechanic Relationship Specialty Start Date End Date Esequiel Graff DO [address] [facility] [address] [place] [address] PCP - General INTERNAL MEDICINE 08/25/19 documented as of this encounter
[2025-02-10 10:47] LABS: Alanine Aminotransferase 22 U/L (6-35); Albumin Level 4.0 g/dL (3.5-5.1); Alkaline Phosphatase 83 U/L (38-126); Anion Gap 8 mmol/L (4-12); Aspartate Amino Transferase 27 U/L (14-36); Bilirubin,Total 0.2 mg/dL (0.2-1.3); Blood Urea Nitrogen 6 mg/dL (7-17); Calcium 9.1 mg/dL (8.4-10.2); Carbon Dioxide 24 mmol/L (22-30); Chloride 104 mmol/L (98-107); Cholesterol 150 mg/dL (0-200); Estimated Glomerular Filt Rate > 60; Glucose 149 mg/dL (65-110); HDL Direct 48 mg/dL; Potassium 3.7 mmol/L (3.4-5.0); Sodium 136 mmol/L (137-145); Total Protein 7.6 g/dL (6.3-8.2); Triglycerides 103 mg/dL (<150)
[2025-02-10 10:56] LABS: MALB Creatinine Ratio 5.4 mg/g (0-30)
[2025-02-10 11:14] LABS: Free T4 Free Thyroxine 0.79 ng/dL (0.78-2.19)
[2025-02-10 11:23] LABS: Thyroid Stimulating Hormone 2.820 uIU/mL (0.465-4.680)
[2025-02-10 11:42] LABS: Vitamin B12 433.0 pg/mL (239-931)
== END 2025-02-10 10:06 | disposition home or self-care (01) ==
PROVIDERS: PCP Internal Medicine; Visit Provider Nurse Practitioner Family
DX: E78.00 Pure hypercholesterolemia, unspecified (principal); E11.9 Type 2 diabetes mellitus without complications; I10 Essential (primary) hypertension; R79.89 Other specified abnormal findings of blood chemistry; E83.51 Hypocalcemia; R94.6 Abnormal results of thyroid function studies; Z79.4 Long term (current) use of insulin
CPT/HCPCS: 36415; 80053; 80061; 82043; 82306; 82607; 84439; 84443

== ENCOUNTER 2025-06-16 13:57 | Outpatient (CLI) | payer BC, SELFPAY ==
[2025-06-16 14:12] LABS: Hematocrit 38.5 % (37.0-47.0); Hemoglobin 12.6 g/dL (12.0-15.0); Immature Granulocyte Percent A 0.4 % (0-0.5); Lymphocytes Absolute Auto 1.37 K/mm3 (0.9-3.2); Mean Corpuscular HGB Conc 32.7 g/dl (32-36); Mean Corpuscular Hemoglobin 29.0 pg (26-34); Mean Corpuscular Volume 88.7 fl (80-100); Nucleated Red Blood Cells Absolute Auto 0.000 K/mm3 (0.0-0.012); Nucleated Red Blood Cells Perc 0.0 % (0.0-0.2); Platelet Count Result 275 k/mm3 (150-375); Red Blood Count 4.34 M/mm3 (4.2-5.4); White Blood Count 4.6 K/mm3 (4.5-10.0)
== END 2025-06-16 13:58 | disposition home or self-care (01) ==
LOC: ANHLAB 14:00
PROVIDERS: PCP Internal Medicine; Visit Provider Nurse Practitioner
DX: E11.9 Type 2 diabetes mellitus without complications (principal)
CPT/HCPCS: 36415; 85025